=== PATIENT | female | born 1995 | race Two or more races ===

== ENCOUNTER 2016-11-01 12:53 | Emergency (ER) | payer BC ==
[2016-11-01 17:05] VITALS: BP 123/80
== END 2016-11-01 17:05 | disposition home or self-care (01) ==
LOC: ED 12:53
DX: H60.92 Unspecified otitis externa, left ear (principal); Z88.1 Allergy status to other antibiotic agents; Z79.899 Other long term (current) drug therapy
CPT/HCPCS: J1885

== ENCOUNTER 2017-06-22 23:38 | Emergency (ER) | payer BC ==
[~2017-06-22] VITALS: Ht 162.6 cm; Wt 74.8 kg
[2017-06-22 23:48] VITALS: Ht 162.6 cm; Wt 74.8 kg
[2017-06-23 01:50] VITALS: BP 117/78
== END 2017-06-23 01:50 | disposition home or self-care (01) ==
LOC: ED 23:38
DX: H60.61 Unspecified chronic otitis externa, right ear (principal); R21 Rash and other nonspecific skin eruption; Z88.1 Allergy status to other antibiotic agents
CPT/HCPCS: J2930; J3490; J7030; Q0163